=== PATIENT | female | born 1990 | race American Indian/Alaskan Native ===

== ENCOUNTER 2017-11-21 02:27 | Emergency (ER) | payer MEDICAID ==
[2017-11-21 02:41] VITALS: BP 124/81
[2017-11-21] MEDS ORDERED: AUGMENTIN 875 MG PO ONE (04:01)
[2017-11-21] MEDS ORDERED: DECADRON IM ONE (04:01)
[2017-11-21] MEDS ORDERED: MOTRIN PO ONE (04:01)
[2017-11-21] MEDS ORDERED: PROVENTIL IH ONE (04:01)
--- NOTE | 2017-11-21 05:56 | Emergency Department Report ---
Upper Respiratory HPI - HPI Chief Complaint: Upper Respiratory Infection Stated Complaint: CP Time Seen by Provider: 11/21/17 04:01 URI Symptoms: Rhinorrhea: Yes, Sore Throat: Yes, Ear Pain: Yes, Cough: Yes, Shortness of Breath: Yes, Sick Contacts: Yes, Unable to Take Fluids: No, Urine Output Abnormal: Yes, Listless Behavior: No Other History: pt presents for sore throat fever ear and sinus pain with noc wheezing cough x 2 weeks hx of brochitis , - Home Meds and Allergies Home Medications: Previous Rx's Medication Instructions Recorded Last Taken Type Amoxicillin/Potassium Clav 1 each PO BID #20 tablet 11/21/17 Unknown Rx [Augmentin 875-125 Tablet] Benzonatate [Tessalon Perles] 200 mg PO Q8HR PRN #60 capsule 11/21/17 Unknown Rx Dexamethasone [Decadron] 4 mg PO Q12H 2 Days #4 tablet 11/21/17 Unknown Rx diphenhydrAMINE [Benadryl CAP] 25 mg PO Q6HR PRN #30 capsule 11/21/17 Unknown Rx Allergies/Adverse Reactions: Allergies Allergy/AdvReac Type Severity Reaction Status Date / Time No Known Allergies Allergy Verified 11/21/17 03:04 ED Review of Systems ROS: Stated complaint: CP Other details as noted in HPI Constitutional: denies: chills, fever Eyes: denies: eye pain, eye discharge, vision change ENT: throat pain, congestion Respiratory: denies: cough, shortness of breath, wheezing Cardiovascular: denies: chest pain, palpitations Endocrine: no symptoms reported Gastrointestinal: denies: abdominal pain, nausea, diarrhea Genitourinary: denies: urgency, dysuria, discharge Musculoskeletal: denies: back pain, joint swelling, arthralgia Skin: denies: rash, lesions Neurological: denies: headache, weakness, paresthesias Psychiatric: denies: anxiety, depression Hematological/Lymphatic: denies: easy bleeding, easy bruising ED Past Medical Hx - Past Medical History Previous Medical History?: Yes Additional medical history: bronchitis - Surgical History Past Surgical History?: Yes Additional Surgical History: x1 - Social History Smoking Status: Current Every Day Smoker Substance Use Type: Alcohol - Medications Home Medications: Home Medications Medication Instructions Recorded Confirmed Last Taken Type Amoxicillin/Potassium Clav 1 each PO BID #20 tablet 11/21/17 Unknown Rx [Augmentin 875-125 Tablet] Benzonatate [Tessalon Perles] 200 mg PO Q8HR PRN #60 capsule 11/21/17 Unknown Rx Dexamethasone [Decadron] 4 mg PO Q12H 2 Days #4 tablet 11/21/17 Unknown Rx diphenhydrAMINE [Benadryl CAP] 25 mg PO Q6HR PRN #30 capsule 11/21/17 Unknown Rx ED Bronchiolitis Physical Exam - Exam General: Vital signs noted. No distress. Alert and acting appropriately. HEENT: Yes Pharyngeal Erythema, Yes Rhinorrhea, No Conjuctival Injection, No Dry Mucous Membranes Ear: Both TM Erythema, Neither TM Bulge, Neither EAC Discharge Neck: Yes Adenopathy, No Rigidity Lungs: Yes Clear Lung Sounds, Yes Good Air Exchange, No Wheezes, No Stridor, No Nasal Flaring, No Retractions, No Use of Accessory Muscles Heart: Yes Regular, No Murmur Abdomen: Yes Tenderness, Yes Normal Bowel Sounds, No Peritoneal Signs Skin: No Rash, No Eczema Neurologic: Alert and oriented, no deficits. Musculoskeletal: Unremarkable. Treatments - Treaments Treatment: Improved Albuterol ED Physical Exam - General Limitations: No Limitations General appearance: alert, in no apparent distress - Eye Eye exam: Present: normal appearance - Expanded ENT Exam Expanded Ear exam: Present: normal external inspection TM/Canal exam: Erythema: Right TM, Left TM, Effusion: Left TM, Perforation: Left TM, Loss of Landmarks: Left TM, Foreign Body: Left TM, Cerumen Impaction: Left TM, Mastoid Tenderness: Left TM, Canal Discharge: Left TM, Canal Tenderness : Left TM Mouth exam: Present: tongue normal, tongue elevation. Absent: trismus Teeth exam: Absent: normal inspection, dental caries Throat exam: Positive: normal inspection, tonsillar erythema, tonsillomegaly, tonsillar exudate. Negative: R peritonsillar mass, L peritonsillar mass - Neck Neck exam: Present: normal inspection - Respiratory Respiratory exam: Present: normal lung sounds bilaterally. Absent: respiratory distress - Cardiovascular Cardiovascular Exam: Present: regular rate, normal rhythm. Absent: systolic murmur, diastolic murmur, rubs, gallop - GI/Abdominal GI/Abdominal exam: Present: soft, normal bowel sounds - Rectal Rectal exam: Present: deferred - Extremities Exam Extremities exam: Present: normal inspection - Back Exam Back exam: Present: normal inspection - Neurological Exam Neurological exam: Present: alert, oriented X3 - Psychiatric Psychiatric exam: Present: normal affect, normal mood - Skin Skin exam: Present: warm, dry, intact, normal color. Absent: rash ED Course Vital Signs 11/21/17 02:39 Temperature 98.6 F Pulse Rate 69 Respiratory 18 Rate Blood Pressure 124/81 O2 Sat by Pulse 98 Oximetry ED Medical Decision Making - Medical Decision Making This is bronchitis with sinusitis symptoms improved with Decadron and albuterol treatment plan DC'd home with same patient will follow up with PCP in 2-3 days return the ED should symptoms worsen Critical care attestation.: If time is entered above; I have spent that time in minutes in the direct care of this critically ill patient, excluding procedure time. ED Disposition Clinical Impression: Acute bronchitis Qualifiers: Bronchitis organism: other organism Qualified Code(s): J20.8 - Acute bronchitis due to other specified organisms Sinusitis Qualifiers: Sinusitis location: maxillary Chronicity: acute Recurrence: recurrent Qualified Code(s): J01.01 - Acute recurrent maxillary sinusitis Disposition: DC/TX- HOME UNDER HOME HLTH Is pt being admited?: No Does the pt Need Aspirin: No Condition: Stable Instructions: Acute Bronchitis (ED) Prescriptions: Amoxicillin/Potassium Clav [Augmentin 875-125 Tablet] 1 each PO BID #20 tablet Benzonatate [Tessalon Perles] 200 mg PO Q8HR PRN #60 capsule PRN Reason: Cough Dexamethasone [Decadron] 4 mg PO Q12H 2 Days #4 tablet diphenhydrAMINE [Benadryl CAP] 25 mg PO Q6HR PRN #30 capsule PRN Reason: rhinorrea Referrals: PRIMARY CARE, [Primary Care Provider] - 3-5 Days Time of Disposition: 06:05
== END 2017-11-21 06:22 | disposition home health service (06) ==
LOC: ED 02:27
DX: J20.9 Acute bronchitis, unspecified (principal); J32.9 Chronic sinusitis, unspecified; F17.200 Nicotine dependence, unspecified, uncomplicated
CPT/HCPCS: 96372; 99283; J1100

== ENCOUNTER 2020-01-29 06:33 | Inpatient (IN) | payer MEDICAID ==
--- NOTE | 2020-01-27 14:53 | History and Physical Report ---
History of Present Illness Date of examination: 01/29/20 History of present illness: 29yo is at 40w 1d on 01/28 and is for RLTCS. PT was going to but cervix is still noted favorable (finger tip dilated) and as a result, opts to proceed with RLTCS. PT is on iron for anemia. PT had a vanished twin early in the . GBS neg Past History Past Medical History: asthma, other ( depression after prior ) Past Surgical History: section - Obstetrical History : 3 Hx # Term Pregnancies: 1 Induced : 1 Number of Living Children: 1 Medications and Allergies Allergies Allergy/AdvReac Type Severity Reaction Status Date / Time No Known Allergies Allergy Verified 11/21/17 03:04 Home Medications Medication Instructions Recorded Confirmed Last Taken Type Albuterol Mdi (or & Nicu Only) 2 puff IH QID PRN #1 inhalation 11/21/17 Unknown Rx [Proair] Amoxicillin/Potassium Clav 1 each PO BID #20 tablet 11/21/17 Unknown Rx [Augmentin 875-125 Tablet] Benzonatate [Tessalon Perles] 200 mg PO Q8HR PRN #60 capsule 11/21/17 Unknown Rx dexAMETHasone [Decadron] 4 mg PO Q12H 2 Days #4 tablet 11/21/17 Unknown Rx diphenhydrAMINE [Benadryl CAP] 25 mg PO Q6HR PRN #30 capsule 11/21/17 Unknown Rx Review of Systems All systems: negative (except HPI) - Vital Signs Vital signs: per EMR charting Results Result Diagrams: 01/29/20 07:26 All other labs normal. Assessment and Plan - Patient Problems (1) Previous section Current Visit: No Status: Acute Plan to address problem: PT is for RLTCS on 01/28. Patient fully consented for the surgery. Risks, benefits, and alternatives were all discussed with the patient including risk of bleeding, infection, and potential for injury. Patient understands and accepts these risks. Patient agrees to proceed with surgery. All questions were answered.
[2020-01-29] MEDS ORDERED: LACTATED RINGERS 2,000 ML ONE (06:52)
[2020-01-29] MEDS ORDERED: LACTATED RINGERS 1,000 ML IV SCH (08:00)
[2020-01-29] MEDS ORDERED: FAMOTIDINE 20 MG/2 ML INJ IV SCH (08:00)
[2020-01-29] MEDS ORDERED: OXYTOCIN DRIP 30 UNITS/500 ML BAG IV SCH ×2 (08:00→11:00)
[2020-01-29] MEDS ORDERED: BICITRA ORAL LIQD 30ML PO SCH (08:00)
[2020-01-29] MEDS ORDERED: METOCLOPRAMIDE 10 MG/2 ML INJ IV SCH (08:00)
[2020-01-29 08:03] LABS: Basophils % (Auto) 0.5 % (0.0-1.8); Eosinophils % (Auto) 0.3 % (0.0-4.3); Hematocrit 34.3 % (30.3-42.9); Hemoglobin 11.4 gm/dl (10.1-14.3); Lymphocytes # (Auto) 1.7 K/mm3 (1.2-5.4); Lymphocytes % (Auto) 21.6 % (13.4-35.0); Mean Corpuscular HGB Conc 33 % (30-34); Mean Corpuscular Volume 85 fl (79-97); Monocytes # (Auto) 0.6 K/mm3 (0.0-0.8); Monocytes % (Auto) 7.5 % (0.0-7.3); Platelet Count 149 K/mm3 (140-440); Red Blood Count 4.04 M/mm3 (3.65-5.03); Red Cell Distribution Width 14.2 % (13.2-15.2)
[2020-01-29] MEDS ORDERED: ceFAZolin/Water 2 GM/20 ML 2 GM/20 ML SYRINGE IV ONE (08:05)
--- NOTE | 2020-01-29 08:14 | Anesthesia Day of Surgery ---
Anesthesia Day of Surgery - Day of Surgery Patient Examined: Yes Patient H&P Reviewed: Yes Patient is NPO: Yes
--- NOTE | 2020-01-29 08:14 | Anesthesia Consultation ---
Anesthesia Consult and Med Hx Date of service: 01/29/20 - Airway Anesthetic Teeth Evaluation: Good ROM Head & Neck: Adequate Mental/Hyoid Distance: Adequate Mallampati Class: Class II Intubation Access Assessment: Probably Good - Pulmonary Exam CTA: Yes - Cardiac Exam Cardiac Exam: RRR - Pre-Operative Health Status ASA Pre-Surgery Classification: ASA3 Proposed Anesthetic Plan: Spinal - Pulmonary Hx Asthma: Yes - Cardiovascular System Hx Hypertension: No - Central Nervous System Hx Seizures: No Hx Psychiatric Problems: No - Endocrine Hx Renal Disease: No Hx Hypothyroidism: No Hx Hyperthyroidism: No - Hematic Hx Anemia: Yes Hx Sickle Cell Disease: No - Other Systems Hx Alcohol Use: No Hx Obesity: Yes
[2020-01-29] MEDS ORDERED: BUPIVACAINE/PF (0.5%) 5 MG/1 ML 30 ML VIAL INFILTRATI ONE (08:18)
[2020-01-29] MEDS ORDERED: ONDANSETRON 4 MG/2 ML INJ ONE (08:18)
[2020-01-29] MEDS ORDERED: dexAMETHasone 20 MG/5 ML VIAL ONE (08:18)
[2020-01-29] MEDS ORDERED: KETOROLAC 30 MG/1 ML INJ ONE (08:23)
[2020-01-29] MEDS ORDERED: PHENYLEPHRINE/NS 1,000 MCG/10 ML SYRINGE (OR USE) IV ONE (09:59)
[2020-01-29] MEDS ORDERED: NALOXONE 0.4 MG/1 ML INJ IV PRN (10:39)
[2020-01-29] MEDS ORDERED: WITCH HAZEL/ GLYCERIN PAD TP PRN (10:39)
[2020-01-29] MEDS ORDERED: LANOLIN/ZINC/DIMETHICONE (LANSINOH) 7 GM TP PRN (10:39)
--- NOTE | 2020-01-29 10:39 | Procedure Note ---
OB Delivery Note - Delivery Date of Delivery: 01/29/20 Surgeon: REZA SHEPHERD Estimated blood loss: other (800cc) - Section Preop diagnosis: repeat Postop diagnosis: same section procedure: section, repeat low transverse Disposition: PACU Complications: none Narrative: Indication: 29-year-old -0-1-1 at 40 weeks and 1 day is for repeat low- transverse . Findings: Normal uterus, tubes and ovaries. Clear fluid. Loose nuchal cord x1. Procedure: Patient taken to the operating room and prepped and draped in the usual fashion. Pfannenstiel skin incision was made and carried down to the underlying fascia. Fascia was incised and the incision was extended bilaterally. Rectus fascia dissected off the rectus muscle both superiorly and inferiorly. Peritoneum identified tented up and entered. Peritoneal incision extended superiorly and inferiorly with good visualization of the bladder. Bladder blade was placed. Uterine incision was made and the incision was extended bilaterally. Delivery required cutting of some of the rectus muscle on the right side. It also required assistance with the Kiwi vacuum. Kiwi vacuum was applied and pumped up to the green section. The baby was delivered in the typical vertex fashion with the Kiwi vacuum. Only 1 pop off was noted. Kiwi was removed. Baby bulb suctioned at the incision site and again after delivery. Cord was clamped and cut and handed off to waiting team. The placenta was delivered spontaneously. The uterus was exteriorized and cleared of all clots and debris. Uterine incision closed with 0 Vicryl in a running locked fashion followed by a second imbricating layer of 0 Vicryl. Good hemostasis was noted after a few additional [id number] stitches. Her urine was clear. Uterus tubes and ovaries were returned to the abdominal cavity. Gutters were cleared of all clots and debris and the pelvis was well irrigated. Good hemostasis noted. Interceed placed over the uterine incision and over the lower uterine segment in the midline. The rectus muscle that was cut for the delivery on the right side was then reapproximated with 2-0 Vicryl. Attention was turned to the rectus fascia which was reapproximated with 0 Vicryl in a running fashion. Subcutaneous tissue was irrigated and reapproximated with 2-0 Vicryl in a running fashion. Skin was closed with 4-0 Vicryl in a subcuticular fashion followed by Dermabond. The procedure was concluded at this point and the patient tolerated the procedure well. All instrument and lap counts were correct. - A at 1 minute: 8 at 5 minutes: 9 Infant Gender: Male
[2020-01-29] MEDS ORDERED: SENNOSIDES 8.6 MG TAB PO PRN (10:41)
[2020-01-29] MEDS ORDERED: ONDANSETRON 4 MG/2 ML INJ IV PRN (10:41)
[2020-01-29] MEDS ORDERED: SIMETHICONE 80 MG CHEW TAB PO PRN (10:41)
[2020-01-29] MEDS ORDERED: MAGNESIUM HYDROXIDE (MOM) ORAL LIQD UDC PO PRN (10:41)
--- NOTE | 2020-01-29 11:05 | Progress Note ---
Regional Anesthesia Block - Regional Anesthesia Block Start Time: 10:50 Stop Time: 10:55 Performed By:: TIMA LEPE Procedure: U/S guided bilateral tap block performed for post-operative pain requested by Dr. Beavers. H&P & labs reviewed. Procedure explained, questions answered, consent obtained. Patient in the supine position with ekg, blood pressure cuff and pulse ox on and working in PACU. Timeout performed immediately before start of procedure. Probe placed in the mid-axillary line and the external oblique, internal oblique, and transverse abdominus muscles identified. Skin was cleansed with 0.5% Chlorahexadine and allowed to dry. A 4" 20 G Mari echogenic needle was advanced in plane until the tip was in the fascial plane between the internal oblique and the transverse abdominus. After negative aspiration 35 ml/side of [30 ml 0.5% Bupivacaine], [50 mcg dexmedetomidine], [10 mg dexamethasone], and [40 ml sterile saline] was injected in 5 ml increments with negative aspiration in between. Patient tolerated procedure well. Alf GOODE
--- NOTE | 2020-01-29 11:06 | Post Anesthesia Evaluation ---
- Post Anesthesia Evaluation Patient Participated: Yes Airway Patent: Yes Stable Respiratory Function: Yes Nausea/Vomiting: No Temp > 96.8F: Yes Pain Manageable: Yes Adequeate Hydration: Yes Anesthesia Complications: No Block Receding Appropriately: Yes
[2020-01-29] MEDS ORDERED: LACTATED RINGERS 1,000 ML ONE (12:51)
[2020-01-29] MEDS: KETOROLAC 30 MG/1 ML INJ IV PRN ×2 (15:38→21:51)
[2020-01-29] MEDS: oxyCODONE /ACETAMINOPHEN 5-325MG TAB PO PRN (16:37)
[2020-01-30] MEDS: oxyCODONE /ACETAMINOPHEN 5-325MG TAB PO PRN ×3 (01:12→17:30)
[2020-01-30 05:52] LABS: Hematocrit 29.2 % (30.3-42.9); Hemoglobin 9.5 gm/dl (10.1-14.3)
--- NOTE | 2020-01-30 10:54 | Discharge Summary ---
Providers - Providers Date of Admission: 01/29/20 06:33 Date of discharge: 01/31/20 Attending physician: LILI SOSA MD Primary care physician: LILI SOSA MD Hospitalization Reason for admission: section Delivery: Procedure: repeat low transverse Episiotomy: none Laceration: none Incision: dry, intact, dressed Other procedures: none complications: none Discharge diagnosis: IUP at term delivered [place] baby: male Hospital course: See admission H & P; OB operative notes and PP progress notes Condition at discharge: Stable Disposition: DC-01 TO HOME OR SELFCARE - Discharge Diagnoses (1) Status post repeat low transverse section Status: Acute (2) Anemia Status: Acute Qualifiers: Anemia type: other cause Other causes of anemia: acute posthemorrhagic Qualified Code(s): D62 - Acute posthemorrhagic anemia Comment: Asymptomatic Plan - Discharge Medications Prescriptions: Ibuprofen [Motrin 800 MG tab] 800 mg PO Q6H PRN #30 tablet PRN Reason: Pain, Mild (1-3) oxyCODONE /ACETAMINOPHEN [Percocet 5/325 mg] 1 tab PO Q6H PRN #30 tablet PRN Reason: Pain, Moderate (4-6) - Provider Discharge Summary Activity: routine, no sex for 6 weeks, no heavy lifting 4 weeks, no strenuous exercise Diet: other (Iron rich diet) Instructions: routine Additional instructions: [] Smoking cessation referral if applicable(refer to patient education folder for contact #) [] Refer to [facility] Booklet Call your doctor immediately for: * Fever > 100.5 * Heavy vaginal bleeding ( >1 pad per hour) * Severe persistent headache * Shortness of breath * Reddened, hot, painful area to leg or breast * Drainage or odor from incision. * Keep incision clean and dry at all times and follow doctor's instructions regarding bathing/showering - Follow up plan Follow up: LILI SOSA MD [Primary Care Provider] - 14 Days
[2020-01-30] MEDS: IBUPROFEN 800 MG TAB PO PRN ×2 (11:39→17:34)
[2020-01-31] MEDS: oxyCODONE /ACETAMINOPHEN 5-325MG TAB PO PRN ×2 (01:30→12:55)
[2020-01-31] MEDS: IBUPROFEN 800 MG TAB PO PRN (06:08)
[2020-01-31 12:22] VITALS: BP 132/77
== END 2020-01-31 14:15 | disposition home or self-care (01) | DRG 765 ==
LOC: APU 06:33 → OB 13:01
PROVIDERS: ADMIT Obstetrics & Gynecology; ATTEND Obstetrics & Gynecology
PROC: 10D00Z1 Extraction of Products of Conception, Low, Open Approach (ICD-10-PCS; principal; 2020-01-29)
DX: O34.211 Maternal care for low transverse scar from previous cesarean delivery (principal); D62 Acute posthemorrhagic anemia; O99.52 Diseases of the respiratory system complicating childbirth; J45.909 Unspecified asthma, uncomplicated; Z20.828 Contact with and (suspected) exposure to other viral communicable diseases; O99.02 Anemia complicating childbirth; Z37.0 Single live birth; Z3A.40 40 weeks gestation of pregnancy; Z79.899 Other long term (current) drug therapy
CPT/HCPCS: 36415; 85014; 85018; 85025; 86850; 86900; 86901; G0378; A6250; J1100; J1885; J2370; J2405; J2765; J3490; J7120; U0003